=== PATIENT | female | born 1970 | race Hispanic/Latino ===

== ENCOUNTER 2024-04-30 09:12 | Emergency (ER) | payer SELFPAY ==
[~2024-04-30] VITALS: Ht 167.6 cm; Wt 99.1 kg
[2024-04-30 09:18] VITALS: TEMP 97.2
[2024-04-30] MEDS ORDERED: JANU100T14 PO (09:18)
[2024-04-30] MEDS ORDERED: SEMA2PEN SQ (09:19)
[2024-04-30 10:13] LABS: BASO % 0.3 % (0.0-1.0); EOS # 0.3 10^3/uL (0.0-0.5); EOS % 3.7 % (0.0-3.0); HEMATOCRIT 34.6 % (36.0-47.0); HEMOGLOBIN 11.4 g/dl (12.0-15.5); LYMPH # 1.7 10^3/uL (1.5-5.0); MEAN CORPUSCULAR HEMOGLOBIN 30.3 pg (27.0-33.0); MEAN CORPUSCULAR HGB CONC 32.9 g/dl (32.0-36.5); MONO # 0.4 10^3/uL (0.0-0.8); MONO % 5.5 % (2.0-8.0); NEUTROPHILS # 4.4 10^3/uL (1.5-8.5); NEUTROPHILS % 65.2 % (36.0-66.0); PLATELET COUNT, AUTOMATED 256 10^3/uL (150-450); RED BLOOD COUNT 3.76 10^6/uL (4.00-5.40); WHITE BLOOD COUNT 6.7 10^3/uL (4.0-10.0)
[2024-04-30 10:46] LABS: BLOOD UREA NITROGEN 16 MG/DL (9-23); CALCIUM LEVEL 9.1 MG/DL (8.5-10.1); CARBON DIOXIDE LEVEL 27 MMOL/L (20-31); CHLORIDE LEVEL 104 MMOL/L (98-107); CREATININE FOR GFR 0.68 MG/DL (0.55-1.30); GLOMERULAR FILTRATION RATE > 60.0 (>51); GLUCOSE, FASTING 242 MG/DL (60-100); MAGNESIUM LEVEL 1.7 MG/DL (1.8-2.4); POTASSIUM SERUM 4.3 MMOL/L (3.5-5.1); SODIUM LEVEL 138 MMOL/L (136-145)
[2024-04-30 10:49] LABS: THYROID STIMULATING HORMONE 1.536 uIU/ML (0.55-4.78)
[2024-04-30 10:58] LABS: CPK CREATINE PHOSPHOKINASE 83 U/L (34-145)
[2024-04-30 11:50] LABS: CK-MB VALUE MASS 1.6 NG/ML (<3.6)
[2024-04-30 11:51] LABS: CPK CREATINE PHOSPHOKINASE 78 U/L (34-145); MB/CK RELATIVE INDEX 2.05 (< OR =4)
[2024-04-30] MEDS ORDERED: ISOVUE-370 76% 100ML VIAL As Ordered ONE (12:59)
[2024-04-30 14:45] VITALS: BP 149/67; O2SAT 96
[2024-04-30] MEDS ORDERED: SLOWTAB2 PO (14:51)
== END 2024-04-30 15:01 | disposition home or self-care (01) ==
LOC: M ED 09:12
DX: R55 Syncope and collapse (principal); E11.9 Type 2 diabetes mellitus without complications; Z88.0 Allergy status to penicillin; Z88.8 Allergy status to other drugs, medicaments and biological substances; Z91.018 Allergy to other foods
CPT/HCPCS: 70450; 71045; 71275; 80048; 82550; 82553; 83605; 83735; 84443; 84484; 85025; 93005; 93041; 94760; 99285; Q9967